=== PATIENT | female | born 1995 | race Two or more races ===

== ENCOUNTER 2017-11-22 05:40 | Emergency (ER) | payer BC, OTHER ==
[~2017-11-22] VITALS: Ht 172.7 cm; Wt 77.1 kg
[2017-11-22 05:40] VITALS: BP 130/78
[2017-11-22] MEDS ORDERED: LORAZEPAM 1 MG TABLET ONE (06:18)
[2017-11-22] MEDS: LORAZEPAM 1 MG TABLET PO ONE (06:20)
== END 2017-11-22 06:56 | disposition home or self-care (01) ==
LOC: ER 05:40
DX: F15.10 Other stimulant abuse, uncomplicated (principal)
CPT/HCPCS: 99283; A4606; Z7610

== ENCOUNTER 2018-11-15 11:58 | Emergency (ER) | payer OTHER ==
[~2018-11-15] VITALS: Ht 160 cm; Wt 90.7 kg
[2018-11-15 11:58] VITALS: BP 116/61
[2018-11-15] MEDS ORDERED: diphenhydrAMINE HCL 50 MG CAPSULE ONE (12:42)
[2018-11-15] MEDS ORDERED: predniSONE 20 MG TABLET ONE (12:43)
[2018-11-15] MEDS ORDERED: FAMOTIDINE (20 MG) 20 MG TABLET ONE (12:43)
[2018-11-15] MEDS ORDERED: predniSONE 10 MG TABLET PO ONE (13:00)
[2018-11-15] MEDS ORDERED: FAMOTIDINE (20 MG) 20 MG TABLET PO ONE (13:00)
[2018-11-15] MEDS ORDERED: diphenhydrAMINE HCL 50 MG CAPSULE PO ONE (13:00)
== END 2018-11-15 12:48 | disposition home or self-care (01) ==
LOC: ER 12:07
DX: B35.6 Tinea cruris (principal); L29.9 Pruritus, unspecified; T50.905A Adverse effect of unspecified drugs, medicaments and biological substances, initial encounter; Y92.89 Other specified places as the place of occurrence of the external cause
CPT/HCPCS: 99284; A4606; J7512; Q0163

== ENCOUNTER 2020-04-25 03:55 | Emergency (ER) | payer MEDICAID, OTHER ==
[~2020-04-25] VITALS: Ht 170.2 cm; Wt 90.7 kg
[2020-04-25 05:03] VITALS: BP 109/61
--- NOTE | 2020-04-25 05:37 | NUR ---
COVID SWAB COLLECTEDAND SENT TO LAB. PT MEDICALLY STABLE FOR D/C. Patient discharged to home in stable condition. Written and verbal after care instructions given. Patient verbalizes understanding of instruction.
== END 2020-04-25 05:39 | disposition home or self-care (01) ==
LOC: ER 03:58
DX: R43.9 Unspecified disturbances of smell and taste (principal); Z20.828 Contact with and (suspected) exposure to other viral communicable diseases
CPT/HCPCS: 99283; C9803; U0003

== ENCOUNTER 2020-05-24 22:28 | Emergency (ER) | payer MEDICAID, OTHER ==
[~2020-05-24] VITALS: Ht 165.1 cm; Wt 61.2 kg
--- NOTE | 2020-05-24 22:43 | NUR ---
PT BIBA FROM HOME C/O BIZARRE AND AGRESSIEV BEHAVIOR S/P METH AND MARIJUANA USE. PT DENIES SI/HI. PT CHANGED INTO GOWN, BELONGINGS PLACED TO LOCKER, ON SAFETY PRECAUTIONS. SITTER AT BEDSIDE FOR CONSTANT OBSERVATION. PT CONNECTED TO THE MONITOR AND POX
[2020-05-24] MEDS ORDERED: LORAZEPAM 1 MG TABLET ONE (23:00)
[2020-05-24] MEDS: LORAZEPAM 1 MG TABLET PO ONE ×2 (23:00→23:05)
--- NOTE | 2020-05-24 23:04 | NUR ---
PT'S FATHER PRESENTED TO THE ER AND ASKING TO PHOTOGRAPHIC RESTORER THE PT. PT IS IN BED AWAKE AND ALERT, OX4. DENIED ANY DISCOMFORT. REMAINED CALM. REFUSED MEDS AND ACCU CHECH AND REPORTED FEELING WELL AND WIILING TO LEAVE THE HOSPITAL WITH HIS DAD. MADE AWARE . SUJATHA Norris/ TO D/C. Patient discharged to home in stable condition. Written and verbal after care instructions given. Patient verbalizes understanding of instruction.
[2020-05-24 23:07] VITALS: BP 138/68
== END 2020-05-24 23:07 | disposition home or self-care (01) ==
LOC: ER 22:28
DX: F15.10 Other stimulant abuse, uncomplicated (principal)

== ENCOUNTER 2021-09-18 18:57 | Emergency (ER) | payer OTHER ==
[~2021-09-18] VITALS: Ht 170.2 cm; Wt 90.7 kg
--- NOTE | 2021-09-18 21:00 | NUR ---
BIBS FOR C/O A LUMP ON THE VAGINAL AREA X 1 DAY. PT AX0 X4 BREATHING EVEN AND UNLABORED. CHANGED INTO A GOWN AND PLACED ON MONITOR AND ALL V/S STABLE.
[2021-09-18] MEDS ORDERED: LIDOCAINE MPF 1%-EPI 1:200,000 30 ML VIAL IJ ONE (21:09)
[2021-09-18] MEDS ORDERED: MORPHINE SULFATE INJ 4 MG/ML DISP.SYRIN ONE (21:10)
[2021-09-18] MEDS ORDERED: LIDOCAINE 1%-EPI 1:100,000 20 ML VIAL TP ONE (21:30)
[2021-09-18] MEDS ORDERED: MORPHINE SULFATE INJ 4 MG/ML DISP.SYRIN IM ONE (21:30)
[2021-09-18] MEDS ORDERED: AMOX-430 PO (21:42)
[2021-09-18] MEDS ORDERED: AMOX/CLAVULANATE 875 MG TABLET ONE (21:47)
--- NOTE | 2021-09-18 21:56 | NUR ---
Patient discharged to home in stable condition. Written and verbal after care instructions given. Patient verbalizes understanding of instruction.
[2021-09-18 21:57] VITALS: BP 135/78
[2021-09-18] MEDS ORDERED: AMOX/CLAVULANATE 875 MG TABLET PO ONE (22:00)
== END 2021-09-18 21:57 | disposition home or self-care (01) ==
LOC: ER 19:06
DX: N76.4 Abscess of vulva (principal); F17.200 Nicotine dependence, unspecified, uncomplicated
CPT/HCPCS: 56405; 96372; 99283; 99406; A6407; J2270; J3490

== ENCOUNTER 2021-12-27 16:08 | Emergency (ER) | payer OTHER ==
[~2021-12-27] VITALS: Ht 167.6 cm; Wt 90.7 kg
[~2021-12-27 16:08] MED LIST: AMOX-430 PO
--- NOTE | 2021-12-27 16:20 | NUR ---
The patient bibs for "Was dizzy/faint yesterday/felt like my heart was beating fast.- Denies any symptoms now". Denies pain. In room air and denies SOB. Respiration regular and unlabored. Will continue to monitor the patient.
[2021-12-27 16:54] LABS: BASOPHILS % (AUTO) 0.2 % (0.0-2.0); EOSINOPHILS % (AUTO) 0.5 % (0.0-6.0); HEMATOCRIT 38 % (33-45); HEMOGLOBIN 12.4 g/dL (11.5-14.8); LYMPHOCYTES # (AUTO) 2.3 K/uL (0.8-4.8); LYMPHOCYTES % (AUTO) 32.2 % (20.0-44.0); MEAN CORPUSCULAR HGB CONC 33 g/dl (31.0-36.0); MEAN CORPUSCULAR VOLUME 80 fL (82-100); MONOCYTES # (AUTO) 0.9 K/uL (0.1-1.30); MONOCYTES % (AUTO) 12.6 % (2.0-12.0); NEUTROPHILS # (AUTO) 3.9 K/uL (1.8-8.9); NEUTROPHILS % (AUTO) 54.5 % (43.0-81.0); PLATELET COUNT (AUTO) 328 K/uL (150-450); RED BLOOD CELL COUNT(AUTO) 4.74 MIL/uL (4.0-5.2); WHITE BLOOD COUNT (AUTO) 7.2 K/uL (4.3-11.0)
[2021-12-27 17:12] LABS: CARBON DIOXIDE 24 mmol/L (21-32); CHLORIDE 103 mmol/L (98-107); CREATININE 0.6 mg/dL (0.6-1.3); GLUCOSE 102 mg/dL (74-106); SODIUM SERUM 135 mmol/L (136-145); UREA NITROGEN, BLOOD 12 mg/dL (7-18)
[2021-12-27 17:28] LABS: THYROID STIMULATING HORMONE < 0.007 uIU/mL (0.358-3.74)
[2021-12-27] MEDS ORDERED: METH10TA7 PO (18:49)
[2021-12-27] MEDS ORDERED: PROP20TA7 PO (18:49)
[2021-12-27 18:58] VITALS: BP 120/63
--- NOTE | 2021-12-27 18:58 | NUR ---
Patient discharged to home in stable condition. Written and verbal after care instructions given. Patient verbalizes understanding of instruction.
== END 2021-12-27 18:58 | disposition home or self-care (01) ==
LOC: ER 16:10
DX: R00.2 Palpitations (principal); E03.9 Hypothyroidism, unspecified; F17.200 Nicotine dependence, unspecified, uncomplicated; Z79.899 Other long term (current) drug therapy
CPT/HCPCS: 36415; 80048-TC; 84439-TC; 84443-TC; 85025-TC

== ENCOUNTER 2022-07-12 14:37 | Emergency (ER) | payer OTHER ==
[~2022-07-12] VITALS: Ht 167.6 cm; Wt 68.0 kg
[~2022-07-12 14:37] MED LIST changes: +METH10TA7 PO; +PROP20TA7 PO
--- NOTE | 2022-07-12 14:40 | NUR ---
BIBS C/O "I FEEL LIKE IM GOING TO FAINT". AMBULATORY, PLACED ON BED.
--- NOTE | 2022-07-12 15:00 | NUR ---
AT BEDSIDE FOR EVAL
--- NOTE | 2022-07-12 15:24 | NUR ---
BLOOD DRAWN AND SENT TO LAB
[2022-07-12] MEDS ORDERED: IV NS 0.9% 1,000 ML BAG IV ONE (15:30)
[2022-07-12 15:39] LABS: BASOPHILS % (AUTO) 0.2 % (0.0-2.0); EOSINOPHILS % (AUTO) 0.6 % (0.0-6.0); HEMATOCRIT 32 % (33-45); HEMOGLOBIN 10.4 g/dL (11.5-14.8); LYMPHOCYTES % (AUTO) 21.9 % (20.0-44.0); MEAN CORPUSCULAR HGB CONC 33 g/dl (31.0-36.0); MEAN CORPUSCULAR VOLUME 78 fL (82-100); MONOCYTES # (AUTO) 0.8 K/uL (0.1-1.30); MONOCYTES % (AUTO) 8.8 % (2.0-12.0); NEUTROPHILS # (AUTO) 6.1 K/uL (1.8-8.9); NEUTROPHILS % (AUTO) 68.5 % (43.0-81.0); PLATELET COUNT (AUTO) 276 K/uL (150-450); RED BLOOD CELL COUNT(AUTO) 4.09 MIL/uL (4.0-5.2); WHITE BLOOD COUNT (AUTO) 8.9 K/uL (4.3-11.0)
[2022-07-12 15:52] LABS: CARBON DIOXIDE 27 mmol/L (21-32); CHLORIDE 102 mmol/L (98-107); CREATININE 0.6 mg/dL (0.6-1.3); GLUCOSE 121 mg/dL (74-106); POTASSIUM 4.4 mmol/L (3.5-5.1); SODIUM SERUM 136 mmol/L (136-145); UREA NITROGEN, BLOOD 14 mg/dL (7-18)
[2022-07-12 15:53] LABS: MAGNESIUM 1.3 mg/dL (1.8-2.4)
[2022-07-12 15:56] LABS: ALANINE AMINOTRANSFERASE 31 U/L (12-78); ALBUMIN 3.2 g/dL (3.4-5.0); ALKALINE PHOSPHATASE 102 U/L (46-116); ASPARTATE AMINOTRANSFERASE 23 U/L (15-37); BILIRUBIN,DIRECT 0.1 mg/dL (0.0-0.2); BILIRUBIN,TOTAL 0.2 mg/dL (0.2-1.0)
[2022-07-12 16:58] LABS: THYROID STIMULATING HORMONE 0.001 uIU/mL (0.358-3.74)
--- NOTE | 2022-07-12 17:20 | NUR ---
IV removed. Catheter intact and site benign. Pressure and 4x4 applied to site. No bleeding noted.Patient discharged to home in stable condition. Written and verbal after care instructions given. Patient verbalizes understanding of instruction.
[2022-07-12 17:21] VITALS: BP 123/56
== END 2022-07-12 17:20 | disposition home or self-care (01) ==
LOC: ER 14:48
DX: R55 Syncope and collapse (principal); E05.90 Thyrotoxicosis, unspecified without thyrotoxic crisis or storm; E03.9 Hypothyroidism, unspecified; F17.200 Nicotine dependence, unspecified, uncomplicated; Z79.899 Other long term (current) drug therapy
CPT/HCPCS: 99285; 96360; 71045; 93005; 85025; 80048; 80076; 83735; 36415; 84439; 84443; 84484; 85730; J7030

== ENCOUNTER 2023-01-01 22:59 | Emergency (ER) | payer OTHER ==
[~2023-01-01] VITALS: Ht 170.2 cm; Wt 68.0 kg
--- NOTE | 2023-01-01 23:35 | NUR ---
circus laborer at bedside
--- NOTE | 2023-01-01 23:42 | NUR ---
urine and covid swab done. sent to lab.
[2023-01-02 00:02] LABS: BASOPHILS % (AUTO) 0.5 % (0.0-2.0); EOSINOPHILS % (AUTO) 0.3 % (0.0-6.0); HEMATOCRIT 38 % (33-45); LYMPHOCYTES # (AUTO) 2.3 K/uL (0.8-4.8); MEAN CORPUSCULAR HGB CONC 32 g/dl (31.0-36.0); MEAN CORPUSCULAR VOLUME 81 fL (82-100); MONOCYTES # (AUTO) 0.7 K/uL (0.1-1.30); MONOCYTES % (AUTO) 8.4 % (2.0-12.0); NEUTROPHILS # (AUTO) 4.9 K/uL (1.8-8.9); NEUTROPHILS % (AUTO) 61.8 % (43.0-81.0); PLATELET COUNT (AUTO) 267 K/uL (150-450); RED BLOOD CELL COUNT(AUTO) 4.62 MIL/uL (4.0-5.2); WHITE BLOOD COUNT (AUTO) 7.9 K/uL (4.3-11.0)
[2023-01-02 00:07] LABS: BILIRUBIN,URINE NEGATIVE (NEGATIVE); LEUKOCYTE ESTERASE ,URINE NEGATIVE (NEGATIVE); NITRITE, URINE NEGATIVE (NEGATIVE); PH,URINE 6.5 (5.0-8.0); PROTEIN,URINE NEGATIVE (NEGATIVE); UGLUCOSE NEGATIVE (NEGATIVE); UROBILINOGEN,URINE 0.2 EU/dL (0.2)
[2023-01-02 00:13] LABS: COLOR,URINE LIGHT YELLOW (YELLOW)
[2023-01-02 00:17] LABS: BACTERIA,URINE None seen /HPF (None Seen); RBC,URINE 0-2 /HPF (0-2); SQUAMOUS EPITHELIAL CELL,UR 0-2 /HPF (None Seen); WBC,URINE NONE SEEN /HPF (0-3)
[2023-01-02 00:52] LABS: CARBON DIOXIDE 22 mmol/L (21-32); CHLORIDE 109 mmol/L (98-107); CREATININE 0.6 mg/dL (0.6-1.3); GLUCOSE 90 mg/dL (74-106); POTASSIUM 3.3 mmol/L (3.5-5.1); SODIUM SERUM 147 mmol/L (136-145); UREA NITROGEN, BLOOD 7 mg/dL (7-18)
[2023-01-02 01:00] LABS: ALANINE AMINOTRANSFERASE 30 U/L (12-78); ALBUMIN 3.9 g/dL (3.4-5.0); ALCOHOL, BLOOD 251 mg/dL (0-0); ALKALINE PHOSPHATASE 156 U/L (46-116); ASPARTATE AMINOTRANSFERASE 18 U/L (15-37); BILIRUBIN,DIRECT 0.1 mg/dL (0.0-0.2); BILIRUBIN,TOTAL 0.2 mg/dL (0.2-1.0); TOTAL PROTEIN, SERUM 8.1 g/dL (6.4-8.2)
--- NOTE | 2023-01-02 02:53 | NUR ---
pt was seen and evaluated by JOSE LUIS nguyen at bed side
--- NOTE | 2023-01-02 03:21 | NUR ---
patient is A, Ox4. ambulatory with steady gaits. denied SI/HI. po intake tolerated well. reported feeling well and willing to leave, aware.
--- NOTE | 2023-01-02 03:24 | NUR ---
patient is medically stable for D/C per MD. Patient discharged to home in stable condition. Written and verbal after care instructions given. Patient verbalizes understanding of instruction.
[2023-01-02 03:25] VITALS: BP 118/69
== END 2023-01-02 03:25 | disposition home or self-care (01) ==
LOC: ER 23:13
DX: F10.129 Alcohol abuse with intoxication, unspecified (principal); F91.1 Conduct disorder, childhood-onset type; Z79.899 Other long term (current) drug therapy; Z20.822 Contact with and (suspected) exposure to COVID-19; Y90.6 Blood alcohol level of 120-199 mg/100 ml
CPT/HCPCS: 99283; 85025; 80048; 80076; 81001; 36415; 87426; 80143; 80320; 80307; C9803; G0480

== ENCOUNTER 2023-07-22 16:07 | Emergency (ER) | payer OTHER ==
[~2023-07-22] VITALS: Ht 167.6 cm; Wt 77.1 kg
[2023-07-22 16:24] VITALS: BP 129/66; TEMP 98; O2SAT 98
== END 2023-07-22 17:54 | disposition home or self-care (01) ==
LOC: ER 16:11
DX: S21.112D Laceration without foreign body of left front wall of thorax without penetration into thoracic cavity, subsequent encounter (principal); Z79.899 Other long term (current) drug therapy; X58.XXXD Exposure to other specified factors, subsequent encounter
CPT/HCPCS: 99281; A6403

== ENCOUNTER 2023-09-29 18:25 | Emergency (ER) | payer OTHER ==
[~2023-09-29] VITALS: Ht 167.6 cm; Wt 67.1 kg
[2023-09-29 19:28] VITALS: BP 150/62; TEMP 98.7; O2SAT 100
== END 2023-09-29 19:29 | disposition home or self-care (01) ==
LOC: ER 18:35
DX: R68.84 Jaw pain (principal)

== ENCOUNTER 2025-03-05 02:52 | Emergency (ER) | payer MEDICAID, OTHER ==
[~2025-03-05] VITALS: Ht 160 cm; Wt 61.2 kg
[2025-03-05] MEDS ORDERED: BENZ85AE TP (04:42)
[2025-03-05] MEDS ORDERED: AMOX500T2 PO (04:42)
[2025-03-05] MEDS ORDERED: AMOXICILLIN TRIHYDRATE 250 MG CAPSULE ONE (04:46)
[2025-03-05] MEDS: AMOXICILLIN TRIHYDRATE 500 MG CAPSULE PO ONE (04:47)
[2025-03-05 04:49] VITALS: BP 132/79; TEMP 98.2; O2SAT 98
== END 2025-03-05 05:14 | disposition home or self-care (01) ==
LOC: ER 02:57
DX: K12.0 Recurrent oral aphthae (principal); F17.290 Nicotine dependence, other tobacco product, uncomplicated; Z79.899 Other long term (current) drug therapy